=== PATIENT | male | born 1955 | race Caucasian/White ===

== ENCOUNTER 2022-01-11 08:52 | Outpatient (CLI) | payer OTHER, SELFPAY ==
[2022-01-11 10:52] LABS: Albumin* 4.4 g/dL (3.3-5.0); Chloride* 105 mmol/L (96-114); Sodium* 140 mmol/L (135-149)
[2022-01-11 10:54] LABS: Carbon Dioxide* 27 mmol/L (20-32); Cholesterol* 166 mg/dL (90-199); Creatinine* 1.8 mg/dL (0.5-1.5); Estimated Glomerular Filt Rate 40 ml/min
[2022-01-11 10:55] LABS: Alanine Aminotransferase* 31 U/L (4-50); Alkaline Phosphatase* 62 U/L (40-150); Aspartate Amino Transferase* 33 U/L (12-35); Bilirubin Total* 0.3 mg/dL (0.1-1.5); Blood Urea Nitrogen* 40 mg/dL (7-30); Calcium* 9.5 mg/dL (8.4-10.6); Glucose* 106 mg/dL (60-115); HDL Cholesterol* 40 mg/dL (>=40); LDL Cholesterol Calculated 87 mg/dL (<100); Total Protein* 7.3 g/dL (6.0-8.3); Triglycerides* 196 mg/dL (40-149)
[2022-01-11 11:27] LABS: PSA Screen* 1.62 ng/mL (0.10-4.00)
== END 2022-01-11 08:53 | disposition home or self-care (01) ==
PROVIDERS: PCP Internal Medicine; Visit Provider Internal Medicine
DX: E78.5 Hyperlipidemia, unspecified (principal); I10 Essential (primary) hypertension; Z01.818 Encounter for other preprocedural examination; Z12.5 Encounter for screening for malignant neoplasm of prostate
CPT/HCPCS: 80053; 80061; 84153

== ENCOUNTER 2022-09-29 07:45 | Outpatient (CLI) | payer OTHER, SELFPAY | END 2022-09-29 07:46 | disposition home or self-care (01) | LOC: NFLDREF 09-30 03:47 | PROVIDERS: PCP Internal Medicine; Referring Provider Internal Medicine; Visit Provider Internal Medicine | DX: I10 Essential (primary) hypertension (principal); E78.5 Hyperlipidemia, unspecified; M10.9 Gout, unspecified; Z12.5 Encounter for screening for malignant neoplasm of prostate | CPT/HCPCS: 80053; 80061; 84153; 84550 ==

== ENCOUNTER 2023-10-08 13:47 | Outpatient (CLI) | payer MEDICARE, SELFPAY ==
--- OUTSIDE RECORDS SUMMARY | 2023-10-08 13:50 | XMS_ITS | Referral Summary ---
Author Name Unknown Organization [place] Address [facility] [place] [address] Care Team Providers Care Enterprise Infrastructure Architect Name Role Phone No Ref-Primary, Physician Primary Care Provider Allergies No known active allergies Social History Tobacco Use Types Packs/Day Years Used Date Smoking Tobacco: Never Assessed Adolescent Education Answer Date Record ed Getting School Help Needed Not on file 06/11 Sex and Gender Information Value Date Recorded Sex Assigned at Not on file Gender Identity Not on file Sexual Orientation Not on file Last Filed Vital Signs Vital Sign Reading Time Taken Comments Blood Pressure 127/80 06/11/2023 11:23 AM JOCKEY AGENT Pulse 51 06/11/2023 11:23 AM JOCKEY AGENT Temperature 36.4 ??C (97.5 ??F) 06/11/2023 7:48 AM CS T Respiratory Rate 18 06/11/2023 7:48 AM JOCKEY AGENT Oxygen Saturation 99% 06/11/2023 11:26 AM JOCKEY AGENT Inhaled Oxygen Concentration - - Weight - - Height - - Body Mass Index - - Plan of Treatment Not on file Procedures Procedure Name Priority Date/Time Associated Diagnosis Comments BASIC METABOLIC PANEL STAT 06/11/2023 8:31 AM JOCKEY AGENT from Last 3 Months or Most Recently Relevant to Health Maintenance Results * (ABNORMAL) Basic metabolic panel (06/11/2023 8:31 AM JOCKEY AGENT) Sodium 141 135 - 145 mmol/L 06/11/2023 9:06 AM JOCKEY AGENT [facility] Comment:Reference intervals for this test were updated on 03/13/2023 to more accurately reflect our healthy population. There may be differences in the flagging of prior results with similar values performed with this method. Interpretation of those prior results can be made in the context of the updated reference intervals. Potassium 4.6 3.4 - 5.3 mmol/L 06/11/2023 9:[address] [facility] Chloride 106 98 - 107 mmol/L 06/11/2023 9:[address] [facility] Carbon Dioxide (CO2) 26 22 - 29 mmol/L 06/11/2023 9:[address] [facility] Anion Gap 9 7 - 15 mmol/L 06/11/2023 9:[address] [facility] Urea Nitrogen 31.6(H) 8.0 - 23.0 mg/dL 06/11/2023 9:[address] [facility] Creatinine 1.83(H) 0.67 - 1.17 mg/dL 06/11/2023 9:[address] [facility] GFR Estimate 39(L) >60 mL/min/1. 73m2 06/11/2023 9:[address] [facility] Calcium 9.0 8.8 - 10.2 mg/dL 06/11/2023 9:[address] [facility] Glucose 110(H) 70 - 99 mg/dL 06/11/2023 9:[address] [facility] Blood STRUCTURE OF RIGHT UPPER LIMB / Unknown Venipuncture / Unknown 06/11/2023 8:31 AM JOCKEY AGENT 06/11/2023 8:36 AM [facility] William Finley MD LAB - BLOOD ORD ERABLES LABORATORY [facility] Acute Care Lab [address] Lab (1st floor, no room number) [place] [address], [facility] [phone] from Last 3 Months or Most Recently Relevant to Health Maintenance Care Teams Enterprise Infrastructure Architect Relationship Specialty Start Date End Date No Ref-Primary, Physician PCP - General 06/11/23
--- OUTSIDE RECORDS SUMMARY | 2023-10-08 13:50 | XMS_ITS | Clinical Summary ---
Author Name Unknown Organization [place] Address [address] [place] [address] Care Team Providers Care Venetian Blind Tape Cutter Name Role Phone No Ref-Primary, Physician Primary [...] Comments Blood Pressure 127/80 06/11/2023 11:23 AM MAP PLOTTER Pulse 51 06/11/2023 11:23 AM MAP PLOTTER Temperature 36.4 ??C (97.5 ??F) 06/11/2023 7:48 AM CS T Respiratory Rate 18 06/11/2023 7:48 AM MAP PLOTTER Oxygen Saturation 99% 06/11/2023 11:26 AM MAP PLOTTER Inhaled Oxygen Concentration - - Weight - - Height - - Body Mass Index - - Plan of Treatment Health Maintenance Due Date Last Done Comments ADVANCE CARE PLANNING 1955 ANNUAL REVIEW OF HM ORDERS 1953 CT COLONOGRAPHY 1953 FIT 1953 FLEX SIG 1953 sDNA (Cologuard) 1953 COLONOSCOPY 1963 COLORECTAL CANCER SCREENING 1963 HEPATITIS C SCREENING 1971 LIPID 1993 RSV VACCINE ( & 60+ ) (1 - 1-dose 60+ series) 2013 FALL RISK ASSESSMENT 2018 MEDICARE ANNUAL WELLNESS VISIT 2018 Pneumococcal Vaccine: 65+ Years (1 of 1 - PCV) 2018 INFLUENZA VACCINE (#1) 2023 PHQ-2 (once per calendar year) 2023 GLUCOSE 06/11/2026 06/11/2023 DTAP/TDAP/TD IMMUNIZATION (2 - Td or Tdap) 01/12/2032 01/11/2022 ZOSTER IMMUNIZATION Completed 02/26/2020, 11/25/2019 COVID-19 Vaccine Completed 05/23/2023, 01/05/2022, 05/04/2021 HPV IMMUNIZATION Aged Out No longer e ligible based on patient's age to complete this topic IPV IMMUNIZATION Aged Out No longer e ligible based on patient's age to complete this topic MENINGITIS IMMUNIZATION Aged Out No l onger eligible based on patient's age to complete this topic RSV MONOCLONAL ANTIBODY Aged Out No l onger eligible based on patient's age to complete this topic Procedures Procedure Name Priority Date/Time Associated Diagnosis Comments BASIC METABOLIC PANEL STAT 06/11/2023 8:31 AM MAP PLOTTER from Last 3 Months or Most Recently Relevant to Health Maintenance Results * (ABNORMAL) Basic metabolic panel (06/11/2023 8:31 AM MAP PLOTTER) Sodium 141 135 - 145 mmol/L 06/11/2023 9:06 AM [facility] Comment:Reference intervals for this test were updated on 03/13/2023 to more accurately reflect our healthy population. There may be differences in the flagging of prior results with similar values performed with this method. Interpretation of those prior results can be made in the context of the updated reference intervals. Potassium 4.6 3.4 - 5.3 mmol/L 06/11/2023 9:06 AM [facility] Chloride 106 98 - 107 mmol/L 06/11/2023 9:06 AM [facility] Carbon Dioxide (CO2) 26 22 - 29 mmol/L 06/11/2023 9:06 AM [facility] Anion Gap 9 7 - 15 mmol/L 06/11/2023 9:06 AM [facility] Urea Nitrogen 31.6(H) 8.0 - 23.0 mg/dL 06/11/2023 9:06 AM [facility] Creatinine 1.83(H) 0.67 - 1.17 mg/dL 06/11/2023 9:06 AM [facility] GFR Estimate 39(L) >60 mL/min/1. 73m2 06/11/2023 9:06 AM [facility] Calcium 9.0 8.8 - 10.2 mg/dL 06/11/2023 9:06 AM [facility] Glucose 110(H) 70 - 99 mg/dL 06/11/2023 9:06 AM [facility] Blood STRUCTURE OF RIGHT UPPER LIMB / Unknown Venipuncture / Unknown 06/11/2023 8:31 AM MAP PLOTTER 06/11/2023 8:36 AM MAP PLOTTER William Finley MD LAB - BLOOD ORD ERABLES LABORATORY [facility] Acute Care Lab [address] [facility] Lab (1st floor, no room number) [place] [address], [facility] [phone] from Last 3 Months or Most Recently Relevant to Health Maintenance Care Teams Venetian Blind Tape Cutter Relationship Specialty Start Date End Date No Ref-Primary, Physician PCP - General 06/11/23
--- NOTE | 2023-10-08 14:00 | US_ITS ---
Patient: YANI CORDOBA Facility:?[facility] RIS Patient ID:?[id number] Site Patient ID:?[id number]. Site :?[id number] Study:?US-Extremity Bilateral Carotid-10/08/2023 3:19:36 PM Ordering Physician:?Sang Mak Final Report: CLINICAL HISTORY: Neuro Changes, Unspecified symptoms and signs TECHNIQUE: The carotid circulations and the vertebral arteries in the neck were examined with rome-scale ultrasound, color-flow and Doppler spectral analysis. Degrees of stenosis were determined using SRU 2002 Consensus Panel Criteria. FINDINGS: Sonographic images demonstrate mild bilateral atherosclerotic plaque formation without suspicious soft tissue mass. There was antegrade blood flow demonstrated within the vertebral arteries and the subclavian arteries demonstrated a normal triphasic waveform. The spectral Doppler tracings of the common carotid, internal and external carotid arteries demonstrate no abnormal turbulence or spectral broadening. There was no significant elevation of peak systolic blood flow which would indicate a hemodynamically-significant stenosis by SRU criteria. The ICA/CCA peak systolic velocity ratio measures 1.0 on the right and 0.8 on the left. IMPRESSION: Less than 50 percent stenosis of the internal carotid arteries bilaterally. Dictated by Harley Mike MD @ 10/12/2023 12:13:49 PM Signed by:?Harley Mike MD @10/12/2023 12:13:49 PM (Electronic Signature)
== END 2023-10-08 13:48 | disposition home or self-care (01) ==
PROVIDERS: PCP Internal Medicine; Visit Provider Internal Medicine
DX: R29.90 Unspecified symptoms and signs involving the nervous system (principal); I65.23 Occlusion and stenosis of bilateral carotid arteries
CPT/HCPCS: 93880

== ENCOUNTER 2023-10-09 12:31 | Outpatient (CLI) | payer MEDICARE, SELFPAY ==
--- OUTSIDE RECORDS SUMMARY | 2023-10-09 12:34 | XMS_ITS | Clinical Summary ---
Author Name Unknown Organization [place] Address [address] [place] [address] Care Team Providers Care End User Consultant Name Role Phone No Ref-Primary, Physician Primary [...] Comments Blood Pressure 127/80 06/11/2023 11:23 AM PHLEBOTOMY SUPERVISOR Pulse 51 06/11/2023 11:23 AM PHLEBOTOMY SUPERVISOR Temperature 36.4 ??C (97.5 ??F) 06/11/2023 7:48 AM CS T Respiratory Rate 18 06/11/2023 7:48 AM PHLEBOTOMY SUPERVISOR Oxygen Saturation 99% 06/11/2023 11:26 AM PHLEBOTOMY SUPERVISOR Inhaled Oxygen Concentration - - Weight - [...] 2023 PHQ-2 (once per calendar year) 2023 COVID-19 Vaccine (4 - 2022-2 4 season) 2023 05/23/2023, 01/05/2022, 05/04/2021 GLUCOSE 06/11/2026 06/11/2023 DTAP/TDAP/TD IMMUNIZATION (2 - Td or Tdap) 01/12/2032 01/11/2022 ZOSTER IMMUNIZATION Completed 02/26/2020, 11/25/2019 HPV IMMUNIZATION Aged Out No longer e [...] BASIC METABOLIC PANEL STAT 06/11/2023 8:31 AM PHLEBOTOMY SUPERVISOR from Last 3 Months or Most Recently Relevant to Health Maintenance Results * (ABNORMAL) Basic metabolic panel (06/11/2023 8:31 AM PHLEBOTOMY SUPERVISOR) Sodium 141 135 - 145 mmol/L 06/11/2023 9:06 AM [facility] Comment:Reference intervals for this test were updated on 03/13/2023 to more accurately reflect our healthy population. There may be differences in the flagging of prior results with similar values performed with this method. Interpretation of those prior results can be made in the context of the updated reference intervals. Potassium 4.6 3.4 - 5.3 mmol/L 06/11/2023 9:06 AM [facility] Chloride 106 98 - 107 mmol/L 06/11/2023 9:06 AM [facility] Carbon Dioxide (CO2) 26 22 - 29 mmol/L 06/11/2023 9:06 AM [facility] Anion Gap 9 7 - 15 mmol/L 06/11/2023 9:06 AM [facility] Urea Nitrogen 31.6(H) 8.0 - 23.0 mg/dL 06/11/2023 9:06 AM [facility] Creatinine 1.83(H) 0.67 - 1.17 mg/dL 06/11/2023 9:06 AM PHLEBOTOMY SUPERVISOR [facility] GFR Estimate 39(L) >60 mL/min/1. 73m2 06/11/2023 9:06 AM PHLEBOTOMY SUPERVISOR [facility] Calcium 9.0 8.8 - 10.2 mg/dL 06/11/2023 9:06 AM PHLEBOTOMY SUPERVISOR [facility] Glucose 110(H) 70 - 99 mg/dL 06/11/2023 9:06 AM PHLEBOTOMY SUPERVISOR [facility] Blood STRUCTURE OF RIGHT UPPER LIMB / Unknown Venipuncture / Unknown 06/11/2023 8:31 AM PHLEBOTOMY SUPERVISOR 06/11/2023 8:36 AM PHLEBOTOMY SUPERVISOR William Finley MD LAB - BLOOD ORD ERABLES LABORATORY [facility] Acute Care Lab [address] Lab (1st floor, no room number) [place] [address], [facility] [phone] from Last 3 Months or Most Recently Relevant to Health Maintenance Care Teams End User Consultant Relationship Specialty Start Date End Date No Ref-Primary, Physician PCP - General 06/11/23
--- OUTSIDE RECORDS SUMMARY | 2023-10-09 12:34 | XMS_ITS | Referral Summary ---
Author Name Unknown Organization [place] Address [facility] [place] [address] Care Team Providers Care Sleeve Bottom Feller Name Role Phone No Ref-Primary, Physician Primary [...] Comments Blood Pressure 127/80 06/11/2023 11:23 AM MAINTAINABILITY ENGINEER Pulse 51 06/11/2023 11:23 AM MAINTAINABILITY ENGINEER Temperature 36.4 ??C (97.5 ??F) 06/11/2023 7:48 AM CS T Respiratory Rate 18 06/11/2023 7:48 AM MAINTAINABILITY ENGINEER Oxygen Saturation 99% 06/11/2023 11:26 AM MAINTAINABILITY ENGINEER Inhaled Oxygen Concentration - - Weight - - Height - - Body Mass Index - - Plan of Treatment Not on file Procedures Procedure Name Priority Date/Time Associated Diagnosis Comments BASIC METABOLIC PANEL STAT 06/11/2023 8:31 AM MAINTAINABILITY ENGINEER from Last 3 Months or Most Recently Relevant to Health Maintenance Results * (ABNORMAL) Basic metabolic panel (06/11/2023 8:31 AM MAINTAINABILITY ENGINEER) Sodium 141 135 - 145 mmol/L 06/11/2023 9:06 AM MAINTAINABILITY ENGINEER [facility] Comment:Reference intervals for this test were updated on 03/13/2023 to more accurately reflect our healthy population. There may be differences in the flagging of prior results with similar values performed with this method. Interpretation of those prior results can be made in the context of the updated reference intervals. Potassium 4.6 3.4 - 5.3 mmol/L 06/11/2023 9:06 AM [facility] Chloride 106 98 - 107 mmol/L 06/11/2023 9:06 AM [facility] Carbon Dioxide (CO2) 26 22 - 29 mmol/L 06/11/2023 9:06 AM [facility] Anion Gap 9 7 - 15 mmol/L 06/11/2023 9:06 AM [facility] Urea Nitrogen 31.6(H) 8.0 - 23.0 mg/dL 06/11/2023 9:06 AM [facility] Creatinine 1.83(H) 0.67 - 1.17 mg/dL 06/11/2023 9:06 AM [facility] GFR Estimate 39(L) >60 mL/min/1. 73m2 06/11/2023 9:06 AM [facility] Calcium 9.0 8.8 - 10.2 mg/dL 06/11/2023 9:06 AM [facility] Glucose 110(H) 70 - 99 mg/dL 06/11/2023 9:06 AM [facility] Blood STRUCTURE OF RIGHT UPPER LIMB / Unknown Venipuncture / Unknown 06/11/2023 8:31 AM MAINTAINABILITY ENGINEER 06/11/2023 8:36 AM [facility] William Finley MD LAB - BLOOD ORD ERABLES LABORATORY [facility] Acute Care Lab [address] Lab (1st floor, no room number) [place] [address], [facility] [phone] from Last 3 Months or Most Recently Relevant to Health Maintenance Care Teams Sleeve Bottom Feller Relationship Specialty Start Date End Date No Ref-Primary, Physician PCP - General 06/11/23
[2023-10-09] MEDS: PERFLUTREN LIPID MICROSPHERES 2 ML VIAL IV (13:32)
[2023-10-09 14:05] VITALS: BP 130/66; PULSE 83
--- NOTE | 2023-10-09 14:23 | W.PM.STED ---
Stress Test Note Date Date Seen: 10/09/23 Date of test: 10/09/23 Providers Primary care provider: Sang Mak Stress test physician: Nelida Tijerina Stress Test Note Stress test ordered: Stress Echo Indication for test: Atypical chest symptoms/episode Stress test medicine: Definity Results discussion: Resting EKG: Sinus rhythm, 69 beats per minute. Resting blood pressure: 144/78 Stress test: Patient was consented on stress test ordered. Cardiac medical history reviewed. Patient followed standard Chente protocol treadmill exercise stress test. Patient exercised to a duration of 7 minutes 2 seconds, equivalent of 8.5 Mets. Exercise was stopped due to patient feeling symptomatic from the level of exercise with shortness of breath and his legs being tired from the incline. He had a maximal blood pressure during the last check of exercise of 150/74, blood pressure was not checked at the very end of exercise as patient had to get definity infused. Right after termination of exercise in recovery, blood pressure was 203/46, came down nicely. Probable hypertensive response to exercise. He had a maximal heart rate of 148 beats per minute which was 115% of a calculated target heart rate of 128. He had no chest symptoms during exercise. Patient had some nondiagnostic downsloping scooped ST segments in lead 2, less so in 3 and AVF, but not meeting criteria for ischemia. Similar seen in V5, possibly V6 but again not meeting diagnostic criteria. Await echo images to couple this for a full formal diagnostic. Patient tolerated the test well. Impression: Subjectively negative, objectively no definitive EKG evidence meeting criteria for ischemia. Follow up suggested: Await echo images to couple this for a full formal report. If echo images show any concern for ischemic change, would certainly recommend Cardiology consultation.
== END 2023-10-09 12:32 | disposition home or self-care (01) ==
LOC: STRESS 12:32
PROVIDERS: PCP Internal Medicine; Visit Provider Family Medicine
DX: R07.9 Chest pain, unspecified (principal); I65.23 Occlusion and stenosis of bilateral carotid arteries
CPT/HCPCS: 93016; 93325; 93351; Q9957

== ENCOUNTER 2024-02-11 07:29 | Outpatient (CLI) | payer MEDICARE, SELFPAY ==
--- OUTSIDE RECORDS SUMMARY | 2024-02-15 00:10 | XMS_ITS | Referral Summary ---
Author Organization [place] Address [facility] [place] [address] Care Team Providers Care Manager Assurance Name Role Phone No Ref-Primary, Physician Primary [...] Comments Blood Pressure 127/80 06/11/2023 11:23 AM STEAM CLEANING MACHINE OPERATOR Pulse 51 06/11/2023 11:23 AM STEAM CLEANING MACHINE OPERATOR Temperature 36.4 ??C (97.5 ??F) 06/11/2023 7:48 AM CS T Respiratory Rate 18 06/11/2023 7:48 AM STEAM CLEANING MACHINE OPERATOR Oxygen Saturation 99% 06/11/2023 11:26 AM STEAM CLEANING MACHINE OPERATOR Inhaled Oxygen Concentration - - Weight - - Height - - Body Mass Index - - Plan of Treatment Not on file Procedures Procedure Name Priority Date/Time Associated Diagnosis Comments BASIC METABOLIC PANEL STAT 06/11/2023 8:31 AM STEAM CLEANING MACHINE OPERATOR from Last 3 Months or Most Recently Relevant to Health Maintenance Results * (ABNORMAL) Basic metabolic panel (06/11/2023 8:31 AM STEAM CLEANING MACHINE OPERATOR) Sodium 141 135 - 145 mmol/L 06/11/2023 9:06 AM STEAM CLEANING MACHINE OPERATOR [facility] Comment:Reference intervals for this test were updated on 03/13/2023 to more accurately reflect our healthy population. There may be differences in the flagging of prior results with similar values performed with this method. Interpretation of those prior results can be made in the context of the updated reference intervals. Potassium 4.6 3.4 - 5.3 mmol/L 06/11/2023 9:06 AM [facility] Chloride 106 98 - 107 mmol/L 06/11/2023 9:06 AM [facility] Carbon Dioxide (CO2) 26 22 - 29 mmol/L 06/11/2023 9:06 AM [facility] Anion Gap 9 7 - 15 mmol/L 06/11/2023 9:06 AM [facility] Urea Nitrogen 31.6(H) 8.0 - 23.0 mg/dL 06/11/2023 9:06 AM [facility] Creatinine 1.83(H) 0.67 - 1.17 mg/dL 06/11/2023 9:06 AM [facility] GFR Estimate 39(L) >60 mL/min/1. 73m2 06/11/2023 9:06 AM [facility] Calcium 9.0 8.8 - 10.2 mg/dL 06/11/2023 9:06 AM [facility] Glucose 110(H) 70 - 99 mg/dL 06/11/2023 9:06 AM [facility] Blood STRUCTURE OF RIGHT UPPER LIMB / Unknown Venipuncture / Unknown 06/11/2023 8:31 AM STEAM CLEANING MACHINE OPERATOR 06/11/2023 8:36 AM STEAM CLEANING MACHINE OPERATOR William Finley MD LAB - BLOOD ORD ERABLES LABORATORY [facility] Acute Care Lab [address] Lab (1st floor, no room number) [place] [address], [facility] [phone] from Last 3 Months or Most Recently Relevant to Health Maintenance Care Teams Manager Assurance Relationship Specialty Start Date End Date No Ref-Primary, Physician PCP - General 06/11/23
--- OUTSIDE RECORDS SUMMARY | 2024-02-15 00:10 | XMS_ITS | Clinical Summary ---
Author Organization [place] Address [facility] [place] [address] Care Team Providers Care Executive Coach Name Role Phone No Ref-Primary, Physician Primary [...] Comments Blood Pressure 127/80 06/11/2023 11:23 AM BOTTOM SPRAYER Pulse 51 06/11/2023 11:23 AM BOTTOM SPRAYER Temperature 36.4 ??C (97.5 ??F) 06/11/2023 7:48 AM CS T Respiratory Rate 18 06/11/2023 7:48 AM BOTTOM SPRAYER Oxygen Saturation 99% 06/11/2023 11:26 AM BOTTOM SPRAYER Inhaled Oxygen Concentration - - Weight - - Height - - Body Mass Index - - Plan of Treatment Health Maintenance Due Date Last Done Comments ADVANCE CARE PLANNING 1955 ANNUAL REVIEW OF HM ORDERS 1953 CT COLONOGRAPHY 1953 FIT 1955 FLEX SIG 1953 sDNA (Cologuard) 1955 COLONOSCOPY 1963 COLORECTAL CANCER SCREENING 1963 HEPATITIS C SCREENING 1971 LIPID 1993 RSV VACCINE (1 - 1-dose 60+ series) 2013 FALL RISK ASSESSMENT 2018 MEDICARE ANNUAL WELLNESS VISIT 2018 Pneumococcal Vaccine: 65+ Years (1 of 1 - PCV) 2018 PHQ-2 (once per calendar year) 2023 COVID-19 Vaccine (4 - 2022-2 4 season) 2023 05/23/2023, 01/05/2022, 05/04/2021 INFLUENZA VACCINE (#1) 2024 GLUCOSE 06/11/2026 06/11/2023 DTAP/TDAP/TD IMMUNIZATION (2 - [...] BASIC METABOLIC PANEL STAT 06/11/2023 8:31 AM BOTTOM SPRAYER from Last 3 Months or Most Recently Relevant to Health Maintenance Results * (ABNORMAL) Basic metabolic panel (06/11/2023 8:31 AM BOTTOM SPRAYER) [facility] Sodium 141 135 - 145 mmol/L 06/11/2023 9:06 AM [facility] Comment:Reference intervals for this test were updated on 03/13/2023 to more accurately reflect our healthy population. There may be differences in the flagging of prior results with similar values performed with this method. Interpretation of those prior results can be made in the context of the updated reference intervals. Potassium 4.6 3.4 - 5.3 mmol/L 06/11/2023 9:06 AM [facility] Chloride 106 98 - 107 mmol/L 06/11/2023 9:06 AM [facility] Carbon Dioxide (CO2) 26 22 - 29 mmol/L 06/11/2023 9:06 AM [facility] Anion Gap 9 7 - 15 mmol/L 06/11/2023 9:06 AM [facility] Urea Nitrogen 31.6(H) 8.0 - 23.0 mg/dL 06/11/2023 9:06 AM [facility] Creatinine 1.83(H) 0.67 - 1.17 mg/dL 06/11/2023 9:06 AM [facility] GFR Estimate 39(L) >60 mL/min/1. 73m2 06/11/2023 9:06 AM BOTTOM SPRAYER [facility] Calcium 9.0 8.8 - 10.2 mg/dL 06/11/2023 9:06 AM BOTTOM SPRAYER [facility] Glucose 110(H) 70 - 99 mg/dL 06/11/2023 9:06 AM BOTTOM SPRAYER [facility] Blood STRUCTURE OF RIGHT UPPER LIMB / Unknown Venipuncture / Unknown 06/11/2023 8:31 AM BOTTOM SPRAYER 06/11/2023 8:36 AM BOTTOM SPRAYER William Finley MD LAB - BLOOD ORD ERABLES [facility] Acute Care Lab [address] Lab (1st floor, no room number) [place] [address], [facility] [phone] from Last 3 Months or Most Recently Relevant to Health Maintenance Care Teams Executive Coach Relationship Specialty Start Date End Date No Ref-Primary, Physician PCP - General 06/11/23
== END 2024-02-11 07:30 | disposition home or self-care (01) ==
LOC: NFLDREF 02-15 00:06
PROVIDERS: PCP Internal Medicine; Referring Provider Internal Medicine; Visit Provider Internal Medicine
DX: I10 Essential (primary) hypertension (principal); E78.5 Hyperlipidemia, unspecified; Z12.5 Encounter for screening for malignant neoplasm of prostate; Z13.9 Encounter for screening, unspecified
CPT/HCPCS: 80053; 80061; G0103

== ENCOUNTER 2025-02-13 07:19 | Outpatient (CLI) | payer MEDICARE, SELFPAY | END 2025-02-13 07:20 | disposition home or self-care (01) | LOC: NFLDREF 02-17 02:47 | PROVIDERS: PCP Internal Medicine; Referring Provider Internal Medicine; Visit Provider Internal Medicine | DX: E78.5 Hyperlipidemia, unspecified (principal); I10 Essential (primary) hypertension; A69.20 Lyme disease, unspecified; Z12.5 Encounter for screening for malignant neoplasm of prostate | CPT/HCPCS: 80053; 80061; 86618; G0103 ==